=== PATIENT | male | born 1960 | race American Indian/Alaskan Native ===

== ENCOUNTER 2017-12-30 10:13 | Day surgery (SDC) | payer BC ==
[2017-12-25 12:43] VITALS: BMI 30.2
[2017-12-30] MEDS ORDERED: ceFAZolin IV 1 gm in Dextrose 2 GM/100 ML BAG IVPB ONE (11:10)
[2017-12-30] MEDS ORDERED: Bupivacaine 0.25% Inj(30mL) ONE (11:10)
[2017-12-30] MEDS ORDERED: Sodium Chloride 0.9% 1,000 ML IV ONE (11:40)
[2017-12-30] MEDS ORDERED: Midazolam 2 MG/2 ML VIAL ONE (11:52)
[2017-12-30] MEDS ORDERED: Propofol 10 mg/ml Inj (20 ML) ONE (11:53)
[2017-12-30] MEDS ORDERED: Neostigmine Methylsulfate 3mg/3ml Syringe IV ONE (12:45)
[2017-12-30] MEDS ORDERED: HYDROmorphone 0.5 mg/0.5 ml ISec IVP PRN (12:56)
[2017-12-30 14:16] VITALS: RESP 18
--- NOTE | 2017-12-31 01:13 | OP ---
PROCEDURE DATE: 12/30/2017. PREOPERATIVE DIAGNOSIS: Partially incarcerated right inguinal hernia. POSTOPERATIVE DIAGNOSIS: Incarcerated pantaloon hernia (direct and indirect hernia of the right inguinal region). SURGEON: Dr. Victor. ANESTHESIA: General endotracheal. ESTIMATED BLOOD LOSS: 30 mL. POSTOPERATIVE CONDITION: Stable. INDICATIONS FOR SURGERY: This is a 57-year-old male with a history of a partially incarcerated right inguinal hernia presents for elective repair. GROSS FINDINGS: The patient had both a direct and indirect hernia component, the direct hernia was partially incarcerated. There was a large cord lipoma and soft tissue tumor associated with the hernia. PROCEDURE: The patient was taken to the operating room and general anesthesia was administered. The right groin was prepped and draped, a right inguinal incision was made. The external oblique aponeurosis was opened exposing both a direct and indirect hernia. The indirect hernia was dealt with first, it was dissected down to its fascial base and transected at the base and inverted. A medium ProLoop mesh was inserted into the defect and sutured in place with interrupted 2-0 Prolene. Next, the large direct inguinal hernia sac was dissected off of the spermatic cord, great care was was taken to avoid injury to the blood vessels of vas deferens. A larger cord lipoma was identified and removed. Once the hernia sac had been taken down to the base, it was inverted and an extra large ProLoop hernia plug was inserted into the defect, sutured in place with interrupted 2-0 Prolene. Bleeding from the epigastric blood vessel was repaired. The wound was irrigated with copious amounts of saline solution. It was closed in layers with Vicryl and there was a large amount of space so an advancement flap closure was performed full-thickness by mobilizing the using multiple layers of Monocryl subcuticular Monocryl and skin clips. The patient tolerated the procedure well, returned to recovery in stable condition. Total advancement flap closure was 40 cm2. Khai Victor MD
[2017-12-31 11:04] VITALS: BP 99/64; PULSE 73; TEMP 98; O2SAT 95
== END 2017-12-30 15:06 | disposition home or self-care (01) ==
LOC: C.SDS 10:13
PROVIDERS: ATTEND Surgery
DX: K40.30 Unilateral inguinal hernia, with obstruction, without gangrene, not specified as recurrent (principal); D17.6 Benign lipomatous neoplasm of spermatic cord
CPT/HCPCS: 14301; 49507; C1781; J0690; J2250; J2704; J2710; J3010; J7040